=== PATIENT | male | born 1955 | race Caucasian/White ===

== ENCOUNTER 2018-09-20 03:29 | Emergency (ER) | payer OTHER ==
[~2018-09-20] VITALS: Ht 180.3 cm; Wt 104.5 kg
[2018-09-20 03:35] VITALS: Ht 180.3 cm; Wt 104.5 kg
[2018-09-20] MEDS ORDERED: NORepinephrine 8MG/250 ML (PMX 250 ML IV STA (03:35)
[2018-09-20] MEDS ORDERED: SODIUM CHLORIDE 0.9% 1L BAG IV* STA ×2 (03:35)
[2018-09-20] MEDS ORDERED: CEFEPIME 2GM/50 ML (PMX) 50 ML IVPB STA (03:35)
[2018-09-20] MEDS ORDERED: VANCOMYCIN 1 GM (PMX) 250 ML IVPB ONE (04:00)
[2018-09-20] MEDS ORDERED: METF-480 PO (04:12)
[2018-09-20] MEDS ORDERED: ASPI-535 PO (04:12)
[2018-09-20] MEDS ORDERED: HYDR12.58 PO (04:12)
[2018-09-20] MEDS ORDERED: ERGO500013 PO (04:12)
[2018-09-20] MEDS ORDERED: GLIP10TA14 PO (04:12)
[2018-09-20] MEDS ORDERED: BENA20TA4 PO (04:12)
[2018-09-20] MEDS ORDERED: ROSU40TA35 PO (04:12)
[2018-09-20] MEDS ORDERED: METO-448 PO (04:12)
[2018-09-20] MEDS ORDERED: FINA5TAB4 PO (04:12)
[2018-09-20] MEDS ORDERED: PYRI50TA15 PO (04:12)
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
[2018-09-20] MEDS ORDERED: VASOPRESSIN 60 UNIT in SOD CHLORIDE 0.9% 57 ML IV STA (05:34)
[2018-09-20] MEDS ORDERED: EPINEPHrine 0.1 MG/ML SYG ONE (07:00)
[2018-09-20] MEDS ORDERED: CA CHLORIDE 10% 10 ML SYRINGE ONE (07:00)
[2018-09-20] MEDS ORDERED: NA BICARBONATE 8.4% 50 ML SYG ONE (07:00)
[2018-09-20] MEDS ORDERED: ACETAMINOPHEN 325 MG TAB GTB ONE (08:30)
[2018-09-20] MEDS ORDERED: ASPIRIN (EC) 81 MG TAB PO SCH (09:00)
[2018-09-20] MEDS ORDERED: VANCOMYCIN IV PER PHARMACY XX SCH (09:00)
[2018-09-20] MEDS ORDERED: PYRIDOXINE 50 MG TAB PO SCH (09:00)
[2018-09-20] MEDS ORDERED: PANTOPRAZOLE 40 MG INJ IV ONE (09:00)
[2018-09-20 10:36] VITALS: BP 60/28; PULSE 44; RESP 22
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
[2018-09-20] MEDS ORDERED: ALBUMIN HUMAN 25% 100 ML IV SCH (12:00)
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
[2018-09-20] MEDS ORDERED: ROSUVASTATIN CALCIUM 40 MG TABLET PO SCH (21:00)
== END 2018-09-20 15:38 | disposition expired ==
LOC: E/R 03:29 → CANRESERV 10:47 → E/R 15:38
DX: I95.9 Hypotension, unspecified (principal); R65.21 Severe sepsis with septic shock; A41.9 Sepsis, unspecified organism; I21.4 Non-ST elevation (NSTEMI) myocardial infarction; N19 Unspecified kidney failure; Z79.82 Long term (current) use of aspirin; Z79.84 Long term (current) use of oral hypoglycemic drugs
CPT/HCPCS: 36415; 36600; 71045; 71250; 74176; 80053; 82803; 82962; 83605; 84484; 85025; 85610; 85730; 87040; 87070; 87400; 92950; 93005; 94002; 96374; 96375; 99291; J0171; J0692; J3370; J7030; P9047